=== PATIENT | male | born 1990 | race Caucasian/White ===

== ENCOUNTER 2018-07-12 05:34 | Emergency (ER) | payer SELFPAY ==
[2018-07-12 05:37] VITALS: RESP 18; TEMP 98.6
[2018-07-12] MEDS ORDERED: SODIUM CHLORIDE 0.9% 1000ML 1,000 ML IV ONE (05:48)
[2018-07-12 06:02] LABS: BASOPHILS % (AUTO) 1 % (0-3); EOSINOPHILS % (AUTO) 2 % (0-9); HEMATOCRIT 47 % (39-53); HEMOGLOBIN 15.8 gm/dl (13.5-17.7); LYMPHOCYTES % (AUTO) 29.6 % (10-50); MEAN CORPUSCULAR HGB CONC 33.5 gm/dl (32.0-36.0); MEAN CORPUSCULAR VOLUME 90 fL (80-100); MONOCYTES % (AUTO) 9.7 % (0-12); NEUTROPHILS % (AUTO) 57.4 % (37-80)
[2018-07-12 06:16] LABS: ALBUMIN 3.6 gm/dl (3.4-5.0); BILIRUBIN,TOTAL 0.8 mg/dl (0.2-1.0); CARBON DIOXIDE 26.9 mEq/L (21-32); CREATININE 1.29 mg/dl (0.80-1.30); POTASSIUM 4.3 mMol/L (3.5-5.1); TOTAL PROTEIN 7.3 gm/dl (6.4-8.2)
[2018-07-12 06:16] LABS: APPEARANCE,URINE Clear; BILIRUBIN,URINE NEGATIVE (NEGATIVE); COLOR,URINE Yellow; GLUCOSE, URINE (UA) NEGATIVE (NEGATIVE); KETONES,URINE NEGATIVE (NEGATIVE); LEUKOCYTE ESTERASE ,URINE NEGATIVE (NEGATIVE); NITRATE,URINE NEGATIVE (NEGATIVE); OCCULT BLOOD,URINE 3+ (NEG-TRACE); UROBILINOGEN,URINE 0.2 (0.2-1.0 EU)
[2018-07-12 06:26] LABS: BACTERIA TRACE (< 1+); CRYSTALS NEGATIVE (0-3 AVE/HPF); EPITHELIAL CELLS 0-2 (SQUAMOUS); RBC,URINE 30-40 (0-3AV/HPF); WBC,URINE 0-2 (0-5AV/HPF)
[2018-07-12] MEDS ORDERED: ONDANSETRON HCL 4 MG/2 ML SOL IV ONE (06:30)
[2018-07-12] MEDS ORDERED: ONDANSETRON HCL 4 MG/2 ML SOL ONE (06:35)
[2018-07-12] MEDS ORDERED: APAP/HYDROCODONE 1 EACH TABLET PO ONE (06:45)
[2018-07-12 06:53] VITALS: BP 130/67; PULSE 57; O2SAT 94
[2018-07-12] MEDS ORDERED: SODIUM CHLORIDE 0.9% FLUSH 10 ML SOL IV PRN (06:54)
[2018-07-12] MEDS ORDERED: APAP/HYDROCODONE 1 EACH TABLET ONE (06:55)
[2018-07-12] MEDS ORDERED: TAMSULOSIN HYDROCHLORIDE 0.4 MG CAP PO SCH (07:00)
[2018-07-12] MEDS ORDERED: TAMSULOSIN HYDROCHLORIDE 0.4 MG CAP ONE (07:02)
== END 2018-07-12 07:44 | disposition home or self-care (01) | DRG 694 ==
LOC: ED 05:34
DX: N20.0 Calculus of kidney (principal)
CPT/HCPCS: 36415; 74176; 80053; 81001; 85025; 96365; 96374; 99283; 99285; J2405; A9270-GY